=== PATIENT | male | born 1975 | race Caucasian/White ===

== ENCOUNTER → 2016-08-01 | Outpatient (CLI) | payer BC ==
[~2016-08-01] MED LIST: CEPHALEXIN500 M1 PO; DEPAKOTE ER 50500 MG PO; PERCOCET 325 MG1 TA2 PO
== END ==
LOC: BHSO 16:11
DX: F31.74 Bipolar disorder, in full remission, most recent episode manic (principal)

== ENCOUNTER 2016-10-15 15:06 | Day surgery (SDC) | payer OTHER, BC ==
[~2016-10-15] VITALS: Ht 188 cm; Wt 89.1 kg
[2016-10-15] VITALS (7 sets, daily range): BP systolic 95–121; BP diastolic 62–89; PULSE 59–77; TEMP 98.1
[~2016-10-15 15:06] MED LIST changes: -CEPHALEXIN500 M1 PO; -PERCOCET 325 MG1 TA2 PO
[2016-10-16 00:20] VITALS: BP 110/47; PULSE 67; TEMP 97.7
[2016-10-16 01:27] VITALS: BP 117/57; PULSE 71; TEMP 98.7
[2016-10-16 05:20] VITALS: BP 111/49; PULSE 76; TEMP 98.2
[2016-10-16] MEDS ORDERED: PERCOCET 325 MG1 TA2 PO (07:15)
[2016-10-16] MEDS ORDERED: CEPHALEXIN500 M1 PO (07:15)
[2016-10-16 09:27] VITALS: BP 111/64; PULSE 76; TEMP 98
[2016-10-16 13:32] VITALS: BP 107/62; PULSE 73; TEMP 97.8
[2016-10-16 17:41] VITALS: BP 110/53; PULSE 75; TEMP 98
== END 2016-10-16 18:30 | disposition home or self-care (01) ==
LOC: COL.ER 15:06 → SDCO 17:25 → SURG 18:19 → SDCO 10-16 18:30
DX: S92.311B Displaced fracture of first metatarsal bone, right foot, initial encounter for open fracture (principal); S92.321B Displaced fracture of second metatarsal bone, right foot, initial encounter for open fracture; S92.411A Displaced fracture of proximal phalanx of right great toe, initial encounter for closed fracture; S97.121A Crushing injury of right lesser toe(s), initial encounter; W31.82XA Contact with other commercial machinery, initial encounter; Y92.63 Factory as the place of occurrence of the external cause
CPT/HCPCS: OP; J0690; J1100; J1170; J1885; J2405; J2704; J3010; J7030

== ENCOUNTER → 2017-02-05 | Outpatient (CLI) | payer OTHER, BC ==
[~2017-02-05] MED LIST changes: +CEPHALEXIN500 M1 PO; +PERCOCET 325 MG1 TA2 PO
== END ==
LOC: BHSO 15:42
DX: F31.73 Bipolar disorder, in partial remission, most recent episode manic (principal)

== ENCOUNTER → 2017-10-11 | Outpatient (CLI) | payer BC | LOC: BHSO 15:18 | DX: F31.81 Bipolar II disorder (principal) | CPT/HCPCS: G0463 ==

== ENCOUNTER → 2018-06-24 | Outpatient (CLI) | payer BC | LOC: BHSO 16:05 | DX: F31.81 Bipolar II disorder (principal) | CPT/HCPCS: G0463 ==

== ENCOUNTER → 2018-12-25 | Outpatient (CLI) | payer BC | LOC: BHSO 16:13 | DX: F31.81 Bipolar II disorder (principal) | CPT/HCPCS: G0463 ==

== ENCOUNTER → 2019-06-22 | Outpatient (CLI) | payer BC | LOC: BHSO 16:06 | DX: F31.81 Bipolar II disorder (principal) | CPT/HCPCS: G0463 ==

== ENCOUNTER → 2019-12-24 | Outpatient (CLI) | payer BC | LOC: BHSO 15:59 | DX: F31.81 Bipolar II disorder (principal) | CPT/HCPCS: G0463 ==